=== PATIENT | female | born 1950 | race Caucasian/White ===

== ENCOUNTER 2016-05-06 13:57 | Inpatient (IN) | payer MEDICARE ==
--- NOTE | ~2016-05-06 | PN ---
Unit #: [id number] #: [id number] Patient: DOTTY REDDY [id number] [facility] [address] [place] [address] [id number] I MR#: [id number] NAME: DOTTY REDDY ROOM: P251 Age: 66 Sex: F Admission Date: 05/06/2016 : 1950 Attending Physician: Jj Krishnan M.D. Admitting Physician: Sigifredo Rodney NOTES DATE OF SERVICE 05/12/2016 DISCUSSION Mr. Reddy is a 66-year-old white female with mood disorder who was seen today. Chart was reviewed and case was discussed with the staff. She remains anxious, withdrawn, restless, irritable, impulsive, and rather bizarre and disorganized though has not shown any agitation or aggression and definitely appears to be showing some improvement, that she was out of her room today, sitting in the day room, and was (1) __ this was the first interaction in a positive way that I have had with her. She has been making the medications and tolerating them fairly well with no reported side effects. She denies any current suicidal or homicidal ideation, and as such we will continue to monitor her response to treatment interventions. We will make further adjustments as needed. Dictated by... Sigifredo Rodney/ering TD: 05/13/2016 06:50 JOB #: [id number] [facility] PROGRESS NOTES Page 1 of 1 X Jj Krishnan MD PROGRESS NOTE
--- NOTE | ~2016-05-06 | PN ---
Unit #: [id number] #: [id number] Patient: DOTTY REDDY [id number] [facility] [address] [place] [address] [id number] I MR#: [id number] NAME: DTOTY REDDY ROOM: P251 Age: 66 Sex: F Admission Date: 05/06/2016 : 1950 Attending Physician: Jj Krishnan M.D. Admitting Physician: Sigifredo Rodney PROGRESS NOTES DATE 05/16/2016 DISCUSSION Ms. Reddy is a 66-year-old white female who was seen today and chart was reviewed and case was discussed with the staff. nausea, any agitation. Meanwhile, she has been cooperative with treatment recommendations. She has been anxious withdrawn and rather seclusive to herself. MENTAL STATUS EXAMINATION An elderly white female who was casually dressed with fair personal hygiene and appears to be in no acute distress or discomfort. She was awake and alert with impaired attention and concentration. Her mood was anxious with a congruent affect. The patient denies any suicidal or homicidal ideation. Her insight and judgment remain slightly impaired. TREATMENT PLAN We will continue on current treatment protocol and monitor her response to medications and make further adjustments as needed. Dictated by... Jj Krishnan M.D. IAA/kayleigh TD: 05/17/2016 10:21 JOB #: [id number] Unit #: [id number] #: [id number] Patient: DOTTY REDDY PROGRESS NOTES Page 1 of 1 X Jj Krishnan MD PROGRESS NOTE
--- NOTE | ~2016-05-06 | PN ---
Unit #: [id number] #: [id number] Patient: DOTTY REDDY [id number] [facility] [address] [place] [address] [id number] I MR#: [id number] NAME: DOTTY REDDY ROOM: P251 Age: 66 Sex: F Admission Date: 05/06/2016 : 1950 Attending Physician: Jj Krishnan M.D. Admitting Physician: Sigifredo Rodney PROGRESS NOTES DATE 05/28/2016 DISCUSSION Ms. Reddy is a 66-year-old white female who was seen today and chart was reviewed and case was discussed with the staff. She has been anxious, withdrawn and rather seclusive to herself. Meanwhile, she has been cooperative with treatment recommendations and has been taking medications and tolerating them fairly well with no reported side effects. MENTAL STATUS EXAMINATION An elderly white female who was casually dressed with fair personal hygiene and appears to be in no acute distress or discomfort. She was awake and alert with impaired attention and concentration. Her mood was anxious with congruent affect. She denies any suicidal or homicidal ideations. Her insight and judgement remains slightly impaired. TREATMENT PLAN Will continue on current treatment protocol as patient is scheduled to get her , will consider doing discharge planning tomorrow. Dictated by... Sigifredo Rodney/james TD: 05/28/2016 16:51 JOB #: [id number] [facility] PROGRESS NOTES Page 1 of 1 X Jj Krishnan MD PROGRESS NOTE
--- NOTE | ~2016-05-06 | PN ---
Unit #: [id number] #: [id number] Patient: DOTTY REDDY [id number] [facility] [address] [place] [address] [id number] I MR#: [id number] NAME: DOTTY REDDY ROOM: P251 Age: 66 Sex: F Admission Date: 05/06/2016 : 1950 Attending Physician: Jj Krishnan M.D. Admitting Physician: Sigifredo Rodney PROGRESS NOTES DATE 05/29/2016 DISCUSSION The patient is a 66-year-old white female who was seen today. Chart was reviewed and the patient was discussed with the staff. The patient has been anxious and withdrawn. She has been rather seclusive to herself. She has been cooperative with treatment recommendations. She has been taking her medication and tolerating them fairly well. MENTAL STATUS EXAMINATION Elderly white female who was casually dressed and fair personal hygiene. She appears to be in no acute distress. Awake and alert. Attention span and concentration fair. Mood is anxious with congruent affect. Speech is slow and restricted in contented. Thought process is disorganized with loose association. Her insight and judgement remains slightly impaired. TREATMENT PLAN 1. Will continue her current medications and treatment protocol. Will monitor her response to medication and make further adjustments as needed. 2. We will continue to follow her. 3. 1. Dictated by... Sigifredo Rodney/gz TD: 05/29/2016 09:08 JOB #: [id number] Unit #: [id number] #: [id number] Patient: DOTTY REDDY PROGRESS NOTES Page 1 of 1 X Jj Krishnan MD PROGRESS NOTE
--- NOTE | ~2016-05-06 | PN ---
Unit #: [id number] #: [id number] Patient: DOTTY REDDY [id number] [facility] [address] [place] [address] [id number] I MR#: [id number] NAME: DOTTY REDDY ROOM: P251 Age: 66 Sex: F Admission Date: 05/06/2016 : 1950 Attending Physician: Jj Krishnan M.D. Admitting Physician: Sigifredo Rodney PROGRESS NOTES DATE 05/20/2016 DISCUSSION Ms. Reddy is a 66-year-old white female who was seen today and chart was reviewed and case was discussed with the staff. She has been anxious, withdrawn, rather seclusive to herself. Meanwhile, she has been cooperative with treatment recommendations and has been taking medications and tolerating them fairly well with no reported side effects. MENTAL STATUS EXAMINATION An elderly white female who was casually dressed with fair personal hygiene and appears to be in no acute distress or discomfort. She was awake and alert on interaction with intact orientation. Her mood was anxious with congruent affect. Her speech is slow and goal-directed. She denies any suicidal or homicidal ideations and also denies any auditory or visual hallucinations. Her insight and judgement remains slightly impaired. TREATMENT PLAN 1. Will continue on current medications and treatment protocol. Will monitor her response to the medications and make further adjustments as needed. 2. Will continue to follow up. Dictated by... Sigifredo Rodney/james TD: 05/21/2016 17:50 JOB #: [id number] Unit #: [id number] #: [id number] Patient: DOTTY REDDY PROGRESS NOTES Page 1 of 1 X Jj Krishnan MD X PROGRESS NOTE
--- NOTE | ~2016-05-06 | DS ---
Unit #: [id number] #: [id number] Patient: DOTTY REDDY [id number] [facility] [address] [place] [address] [id number] MR#: [id number] NAME: DOTTY REDDY ROOM: Formerly Named [facility] Age: 66 Sex: F Admission Date: 05/06/2016 : 1950 Discharge Date: 06/01/2016 Attending Physician: Jj Krishnan M.D. DISCHARGE SUMMARY IDENTIFYING DATA Ms. Caro is a 66-year-old white female, who was self-referred to the outpatient treatment program. DISCHARGE DIAGNOSES Psychiatric: Major depressive disorder, recurrent, moderate, without psychotic features. Medical: Please H and P. Stressors: Moderate psychosocial stressors. HISTORY OF PRESENT ILLNESS Please see initial psychiatric evaluation for details. PAST PSYCHIATRIC HISTORY Please see initial psychiatric evaluation for details. PAST MEDICAL HISTORY Please see initial psychiatric evaluation for details. HOSPITAL COURSE The patient was admitted to the adult psychiatric unit at [facility] and was oriented to the hospital environment. Routine p.r.n. medications were initiated, and she was started back on home medications, and Risperdal 1 mg b.i.d. and Celexa 20 mg daily were initiated, and she was closely monitored. She was taking medications regularly and as such, was hypersensitivity to the molecule of will be discharged home and will continue treatment on an outpatient basis. DISCHARGE CONDITION Stable. PROGNOSIS Fair. Dictated by... Sigifredo Rodney/guanako TD: 07/08/2016 02:06 JOB #: [id number] Unit #: [id number] #: [id number] Patient: DOTTY REDDY DISCHARGE SUMMARY Page 1 of 1 X Jj Krishnan MD X DISCHARGE SUMMARY
--- NOTE | ~2016-05-06 | PN ---
Unit #: [id number] #: [id number] Patient: DOTTY REDDY [id number] [facility] [address] [place] [address] [id number] I MR#: [id number] NAME: DOTTY REDDY ROOM: P251 Age: 66 Sex: F Admission Date: 05/06/2016 : 1950 Attending Physician: Jj Krishnan M.D. Admitting Physician: Sigifredo Rodney PROGRESS NOTES DATE 06/01/2016 DISCUSSION Ms. Reddy is a 66-year-old white female who was seen today and chart was reviewed and case was discussed with the staff. She was laying in her bed and has been doing fairly well and social worker health services will be working with discharge planning today and hopefully getting her back to residential facility. Dictated by... Sigifredo Rodney/emeka TD: 06/02/2016 22:26 JOB #: [id number] [facility] PROGRESS NOTES Page 1 of 1 X Jj Krishnan MD PROGRESS NOTE
--- NOTE | ~2016-05-06 | PN ---
Unit #: [id number] #: [id number] Patient: DOTTY REDDY [id number] [facility] [address] [place] [address] [id number] I MR#: [id number] NAME: DOTTY REDDY ROOM: P251 Age: 66 Sex: F Admission Date: 05/06/2016 : 1950 Attending Physician: Jj Krishnan M.D. Admitting Physician: Sigifredo Rodney NOTES DATE OF SERVICE 05/19/2016 DISCUSSION Ms. Reddy is a 66-year-old white female who was seen today. Chart was reviewed and case was discussed with the staff. She has been anxious and withdrawn though has not shown any agitation or irritability (1) ___. MENTAL STATUS EXAMINATION An elderly white female who is casually dressed with fair personal hygiene, appears to be in no acute distress or discomfort. The patient was awake and alert with impaired attention and concentration. Her mood is anxious and depressed with congruent affect. She denies any suicidal or homicidal ideations. Her insight and judgment remain slightly impaired. TREATMENT PLAN 1. We will continue her on her current medications and treatment protocol. We will monitor her response to the medications and make further adjustments as needed. 2. We will continue to follow up. Dictated by... Sigifredo Rodney/ering TD: 05/20/2016 10:06 JOB #: [id number] [facility] PROGRESS NOTES Page 1 of 1 X Jj Krishnan MD X PROGRESS NOTE
--- NOTE | ~2016-05-06 | PN ---
Unit #: [id number] #: [id number] Patient: DOTTY REDDY [id number] [facility] [address] [place] [address] [id number] I MR#: [id number] NAME: DOTTY REDDY ROOM: P251 Age: 66 Sex: F Admission Date: 05/06/2016 : 1950 Attending Physician: Jj Krishnan M.D. Admitting Physician: Sigifredo Rodney PROGRESS NOTES DATE 05/09/2016 DISCUSSION Ms. Reddy is a 66-year-old white female with mood disorder and psychosis was seen today and chart was reviewed and case was discussed with the staff. She remains acutely psychotic with very bizarre behavior and has been rather seclusive to herself and has not been coming out socializing and going to therapy groups and has been difficult or able to carry on any meaningful conversation. MENTAL STATUS EXAMINATION An elderly white female who was casually dressed with fair personal hygiene, appears to be in no acute distress or discomfort. She was awake and alert with impaired attention and concentration. Her mood was anxious with congruent affect. Her speech was slow and tangential. Her thought processes were disorganized with some looseness of associations and paranoid ideation. Her insight and judgement remains significantly impaired. TREATMENT PLAN 1. We will continue her on her current treatment protocol. We will monitor her response and make further adjustments as needed. 2. We will continue to follow up. Dictated by... Sigifredo Rodney/emeka TD: 05/11/2016 01:48 JOB #: [id number] Unit #: [id number] #: [id number] Patient: DOTTY REDDY PROGRESS NOTES X Jj Krishnan MD PROGRESS NOTE
--- NOTE | ~2016-05-06 | CO ---
Unit #: [id number] #: [id number] Patient: DOTTY REDDY [id number] [facility] [address] [place] [address] [id number] I MR#: [id number] NAME: DOTTY REDDY ROOM: P251 Age: 66 Sex: F Admission Date: 05/06/2016 : 1950 Attending Physician: Jj Krishnan M.D. CONSULTATION REPORT REASON FOR CONSULT Increased urination. SUBJECTIVE "The only reason I urinate on the floor is because I cannot make it to the bathroom down the [address] and bathroom here is always locked. I don't have any pain except maybe a little bit when I urinate." OBJECTIVE Vital signs within normal limits. No pain to palpation over abdomen. No flank pain. ASSESSMENT Possible urinary tract infection. PLAN Obtain UA today with culture and results to provider conservation officer. Dictated by... Maya Dumont/james TD: 05/23/2016 18:04 JOB #: [id number] CONSULTATION REPORT Page 1 of 1 X Lily Lee APR X CONSULTATION REPORT
--- NOTE | ~2016-05-06 | PN ---
Unit #: [id number] #: [id number] Patient: DOTTY REDDY [id number] [facility] [address] [place] [address] [id number] I MR#: [id number] NAME: DOTTY REDDY ROOM: P251 Age: 66 Sex: F Admission Date: 05/06/2016 : 1950 Attending Physician: Jj Krishnan M.D. Admitting Physician: Sigifredo Rodney PROGRESS NOTES DATE OF SERVICE: 05/17/2016 SUBJECTIVE Ms. Reddy is a 66-year-old white female with mood disorder and psychosis, who was seen today and chart was reviewed, and case was discussed with the staff. She has been anxious, withdrawn, disorganized, and rather seclusive to herself. Meanwhile, she has not shown any agitation or aggression and has been taking the medications and tolerating them fairly well with no reported side effects. MENTAL STATUS EXAMINATION An elderly white female who was casually dressed with fair personal hygiene, appears to be in no acute distress or discomfort. She was awake and alert with impaired attention and concentration. Her mood was anxious with a congruent affect. Her speech was slow and restricted in content. Her thought processes were disorganized with some looseness of associations and flight of ideas. Her insight and judgment remain significantly impaired. TREATMENT PLAN We will continue on her current medications and treatment. We will monitor her response and make further adjustments as needed. Dictated by... Sigifredo Rodney/guanako TD: 05/18/2016 22:00 JOB #: [id number] [facility] PROGRESS NOTES Page 1 of 1 X Jj Krishnan MD NOTE
--- NOTE | ~2016-05-06 | PN ---
Unit #: [id number] #: [id number] Patient: DOTTY REDDY [id number] [facility] [address] [place] [address] [id number] I MR#: [id number] NAME: DOTTY REDDY ROOM: P251 Age: 66 Sex: F Admission Date: 05/06/2016 : 1950 Attending Physician: Jj Krishnan M.D. Admitting Physician: Sigifredo Rodney PROGRESS NOTES DATE OF SERVICE: 05/11/2016 SUBJECTIVE Ms. Reddy is a 66-year-old white female who was seen today and chart was reviewed, and case was discussed with the staff. She remains anxious, agitated, irritable, impulsive, disorganized with bizarre behavior, and persistent paranoia. Meanwhile, she has been taking medications and tolerating them fairly well with no reported side effects. MENTAL STATUS EXAMINATION An elderly white female who was casually dressed with fair personal hygiene, appears to be in no acute distress or discomfort. She was awake and alert with impaired attention and concentration. Her mood was anxious with a congruent affect. Her speech was slow and restricted in content. Her thought processes were disorganized with some looseness of associations. Her insight and judgment remain significantly impaired. TREATMENT PLAN 1. We will continue on her current medications and treatment protocol. We will monitor her response to medications and make further adjustments as needed. 2. We will continue to follow up. Dictated by... Sigifredo Rodney/austinl TD: 05/12/2016 01:28 JOB #: [id number] [facility] PROGRESS NOTES Page 1 of 1 X Jj Krishnan MD PROGRESS NOTE
--- NOTE | ~2016-05-06 | PN ---
Unit #: [id number] #: [id number] Patient: DOTTY MERCER [id number] [facility] [address] [place] [address] [id number] I MR#: [id number] NAME: DOTTY MERCER ROOM: P251 Age: 66 Sex: F Admission Date: 05/06/2016 : 1950 Attending Physician: Jj Krishnan M.D. Admitting Physician: Sigifredo Rodney NOTES DATE OF SERVICE: 05/08/2016 SUBJECTIVE Ms. Mercer is a 66-year-old white female, who was seen today and chart was reviewed, and case was discussed with the staff. She has been anxious, restless, withdrawn, and has been agitated, irritable, impulsive, and very negative attitude and behavior. MENTAL STATUS EXAMINATION An elderly white female, who was casually dressed with fair personal hygiene, appears to be in no acute distress or discomfort. She was awake and alert with impaired attention and concentration. Her mood was anxious with a congruent affect. Her speech was slow and tangential. Thought processes were disorganized with some looseness of associations and flight of ideas. Her insight and judgment remain significantly impaired. TREATMENT PLAN 1. We will continue her on her current medications and treatment protocol. We will monitor her response to the medications and make further adjustments as needed. 2. We will continue to follow up. Dictated by... Sigifredo Rodney/guanako TD: 05/09/2016 00:57 JOB #: [id number] [facility] ORTIZ NOTES X Jj Krishnan MD PROGRESS NOTE
--- NOTE | ~2016-05-06 | PN ---
Unit #: [id number] #: [id number] Patient: DOTTY MERCER [id number] [facility] [address] [place] [address] [id number] I MR#: [id number] NAME: DOTTY MERCER ROOM: P251 Age: 66 Sex: F Admission Date: 05/06/2016 : 1950 Attending Physician: Jj Krishnan M.D. Admitting Physician: Sigifredo Rodney NOTES DATE OF SERVICE: 05/10/2016 SUBJECTIVE Ms. Mercer is a 66-year-old white female who was seen today and chart was reviewed and case was discussed with the staff. She has been anxious, withdrawn, and rather seclusive to herself. Meanwhile, she has been cooperative with treatment recommendations and has been taking the medications and tolerating them fairly well. MENTAL STATUS EXAMINATION An elderly white female who was casually dressed with fair personal hygiene, appears to be in slight distress and discomfort. She was awake and alert with impaired attention and concentration. Her mood was anxious with a congruent affect. She denies any suicidal or homicidal ideations. Her insight and judgment remain significantly impaired. TREATMENT PLAN 1. We will continue her on her current medications and treatment protocol. We will monitor her response and make further adjustments as needed. 2. We will continue to follow up. Dictated by... Sigifredo Rodney/guanako TD: 05/11/2016 19:15 JOB #: [id number] [facility] ORTIZ NOTES Page 1 of 1 X Jj Krishnan MD PROGRESS NOTE
--- NOTE | ~2016-05-06 | HP ---
Unit #: [id number] #: [id number] Patient: SANDRA REDDY [id number] [place] [address] [id number] I MR#: [id number] NAME: SANDRA REDDY ROOM: P251 Age: 66 Sex: F Admission Date: 05/06/2016 : 1950 Attending Physician: Jj Krishnan M.D. Admitting Physician: Jj Krishnan M.D. HISTORY AND PHYSICAL HISTORY OF PRESENT ILLNESS Sandra is a 66 year old, admitted to [address] [place] [address] with psychotic behavior. On admission, she was observed responding to internal stimuli. PAST MEDICAL HISTORY 1. High blood pressure. 2. Seasonal allergies. PAST SURGICAL HISTORY Nothing reported. ALLERGIES No known drug allergies. SOCIAL HISTORY She smokes four packs a day. She drinks alcohol and uses marijuana. FAMILY HISTORY Medically noncontributory. REVIEW OF SYSTEMS She does not answer all questions appropriately. She has no complaints of chest pain or shortness of breath. There has been no nausea, vomiting, or diarrhea. CURRENT MEDICATIONS 1. Celexa 20 mg daily 2. Risperdal 1 mg b.i.d. 3. Valium 10 mg q.h.s. p.r.n. 4. Milk of magnesia p.r.n. 5. Maalox p.r.n. 6. Tylenol p.r.n. PHYSICAL EXAMINATION GENERAL: Alert, well-nourished, no apparent distress. VITAL SIGNS: Blood pressure 124/66, heart rate 72, respirations 16, and temperature 98.6. WEIGHT: 167 pounds. HEIGHT: 5 feet 6 inches. SKIN: Warm and dry without rash or lesion. HEENT: Normocephalic. TMs not viewed. Oral and nasal passages clear. Conjunctivae clear. PERRLA. EOMs intact. Unit #: [id number] #: [id number] Patient: SANDRA REDDY NECK: Supple without lymphadenopathy or thyromegaly. HEART: Regular rate and rhythm without murmur. LUNGS: Clear. ABDOMEN: Soft, nontender. : Not done. EXTREMITIES: No evidence of cyanosis, clubbing or edema. Moves all without focal deficit. NEUROLOGICAL: Unable to complete extended examination. She does move all extremities without focal deficit. Hand candy maker is equal and gait is normal. IMPRESSION Psychiatric admission. RECOMMENDATIONS Psychiatric, per psychiatrist. MEDICAL I see no contraindications to participating in facility's activities. MEDICAL PROGNOSIS Good. MEDICAL CONDITION Stable. Dictated by... Claudia Toro P.A.-C. for Sigifredo Henry/karen TD: 05/07/2016 12:42 JOB #: [id number] HISTORY AND PHYSICAL X Claudia Toro X HISTORY AND PHYSICAL
--- NOTE | ~2016-05-06 | PN ---
Unit #: [id number] #: [id number] Patient: DOTTY REDDY [id number] [facility] [address] [place] [address] [id number] I MR#: [id number] NAME: DOTTY REDDY ROOM: P251 Age: 66 Sex: F Admission Date: 05/06/2016 : 1950 Attending Physician: Jj Krishnan M.D. Admitting Physician: Sigifredo Rodney PROGRESS NOTES DATE 05/15/2016 DISCUSSION Ms. Reddy is a 66-year-old white female who was seen today and chart was reviewed and case was discussed with the staff. She has been anxious, withdrawn and rather seclusive to herself. Meanwhile, she has been cooperative with treatment recommendations and has been taking medications and tolerating them fairly well with no reported side effects. MENTAL STATUS EXAMINATION An elderly white female who was casually dressed with fair personal hygiene and appears to be in no acute distress or discomfort. She was awake and alert on interaction with impaired attention and concentration. Her mood was anxious with congruent affect. Her speech is slow and tangential. Her thought processes were disorganized with some looseness of associations and flight of ideas. Her insight and judgement remains significantly impaired. TREATMENT PLAN 1. Will continue on current medications and treatment protocol. Will monitor her response to the medications and make further adjustments as needed. 2. Will continue to follow up. Dictated by... Jj Krishnan M.D. IAA/james TD: 05/15/2016 15:54 JOB #: [id number] Unit #: [id number] #: [id number] Patient: DOTTY REDDY PROGRESS NOTES Page 1 of 1 X Jj Krishnan MD PROGRESS NOTE
--- NOTE | ~2016-05-06 | PN ---
Unit #: [id number] #: [id number] Patient: DOTTY REDDY [id number] [facility] [address] [place] [address] [id number] I MR#: [id number] NAME: DOTTY REDDY ROOM: P251 Age: 66 Sex: F Admission Date: 05/06/2016 : 1950 Attending Physician: Jj Krishnan M.D. Admitting Physician: Sigifredo Rodney NOTES DATE 05/31/2016 DISCUSSION Ms. Reddy is a 66-year-old white female who was seen today and chart was reviewed and case was discussed with the staff. She has been anxious, withdrawn and rather seclusive to herself. Meanwhile, she has been cooperative with treatment recommendations as she has been taking the medications and tolerating them fairly well with no reported side effects. MENTAL STATUS EXAMINATION An elderly white female who was casually dressed with fair personal hygiene, appears to be in no acute distress or discomfort. She was awake and alert on interaction with intact orientation. Her mood was anxious with congruent affect. She denies any suicidal or homicidal ideations. Her insight and judgement remains slightly impaired. TREATMENT PLAN We will continue her on her current treatment protocol. We will monitor her response to the medication and make further adjustments as needed. Dictated by... Sigifredo Rodney/emeka TD: 06/01/2016 22:10 JOB #: [id number] [facility] PROGRESS NOTES Page 1 of 1 X Jj Krishnan MD PROGRESS NOTE
--- NOTE | ~2016-05-06 | PN ---
Unit #: [id number] #: [id number] Patient: DOTTY REDDY [id number] [facility] [address] [place] [address] [id number] I MR#: [id number] NAME: DOTTY REDDY ROOM: P251 Age: 66 Sex: F Admission Date: 05/06/2016 : 1950 Attending Physician: Jj Krishnan M.D. Admitting Physician: Sigifredo Rodney PROGRESS NOTES DATE May 26, 2016 DISCUSSION Ms. Reddy is a 66-year-old white female, who was seen today and chart was reviewed and the case was discussed with the staff. She has been anxious, withdrawn, but has not shown any agitation and has been cooperative with the treatment recommendations and has been taking the medications and tolerating them fairly well with no reported side effects. MENTAL STATUS EXAMINATION An elderly white female, who was casually dressed with fair personal hygiene and appears to be in no acute distress or discomfort. She was awake and alert on interaction with intact orientation. Her mood was anxious with a congruent affect. The patient denies any suicidal or homicidal ideations. Her insight and judgment remain slightly impaired. TREATMENT PLAN 1. We will continue her on her current medications and treatment protocol, and will monitor her response to the medications, and make further adjustments as needed. 2. We will continue to followup. Dictated by... Sigifredo Rodney/karen TD: 05/27/2016 10:26 JOB #: [id number] Unit #: [id number] #: [id number] Patient: DOTTY REDDY PROGRESS NOTES Page 1 of 1 X Jj Krishnan MD PROGRESS NOTE
--- NOTE | ~2016-05-06 | PN ---
Unit #: [id number] #: [id number] Patient: DOTTY REDDY [id number] [facility] [address] [place] [address] [id number] I MR#: [id number] NAME: DOTTY REDDY ROOM: P251 Age: 66 Sex: F Admission Date: 05/06/2016 : 1950 Attending Physician: Jj Krishnan M.D. Admitting Physician: Sigifredo Rodney PROGRESS NOTES DATE OF SERVICE: 05/24/2016 SUBJECTIVE Ms. Reddy is a 66-year-old white female who was seen today and chart was reviewed, and case was discussed with the staff. She has been anxious, withdrawn, and rather seclusive to herself. Meanwhile, she has been cooperative with treatment recommendation and has been taking the medications and tolerating them fairly well. MENTAL STATUS EXAMINATION An elderly white female who was casually dressed with fair personal hygiene, and appears to be in no acute distress or discomfort. She was awake and alert with impaired attention and concentration. Her mood was anxious with a congruent affect. Her speech was slow and restricted in content. Her thought processes were disorganized with some looseness of associations and paranoid ideations. Her insight and judgment remain significantly impaired. TREATMENT PLAN 1. We will continue on her current medications and treatment protocol. We will monitor her response and make further adjustments as needed. 2. We will continue to follow up. Dictated by... Sigifredo Rodney/guanako TD: 05/25/2016 12:16 JOB #: [id number] [facility] PROGRESS NOTES Page 1 of 1 X Jj Krishnan MD NOTE
--- NOTE | ~2016-05-06 | PN ---
Unit #: [id number] #: [id number] Patient: DOTTY REDDY [id number] [facility] [address] [place] [address] [id number] MR#: [id number] NAME: DOTTY REDDY ROOM: P251 Age: 66 Sex: F Admission Date: 05/06/2016 : 1950 Attending Physician: Jj Krishnan M.D. Admitting Physician: Sigifredo Rodney PROGRESS NOTES DATE 05/27/2016 DISCUSSION Ms. Reddy is a 66-year-old white female with mood disorder and psychosis who was seen today and chart was reviewed and case was discussed with the staff. She remains anxious, withdrawn though has not shown any agitation, irritability or behavioral problems and has been cooperative with treatment recommendations and has been taking medications and tolerating them fairly well with no reported side effects. MENTAL STATUS EXAMINATION An elderly white female who was casually dressed with fair personal hygiene and appears to be in no acute distress or discomfort. She was awake and alert with impaired attention and concentration. Her mood was anxious with congruent affect. Her speech is slow and restricted in content. She denies any suicidal or homicidal ideation and also denies any auditory or visual hallucinations. Her insight and judgement remains slightly impaired. TREATMENT PLAN 1. Will continue on current medications and treatment protocol. Will monitor her response to the medications and make further adjustments as needed. 2. Will continue to follow up. Dictated by... Sigifredo Rodney/james TD: 05/27/2016 22:43 JOB #: [id number] Unit #: [id number] #: [id number] Patient: DOTTY REDDY PROGRESS NOTES Page 1 of 1 X Jj Krishnan MD NOTE
--- NOTE | ~2016-05-06 | PN ---
Unit #: [id number] #: [id number] Patient: DOTTY MERCER [id number] [facility] [address] [place] [address] [id number] I MR#: [id number] NAME: DOTTY MERCER ROOM: P251 Age: 66 Sex: F Admission Date: 05/06/2016 : 1950 Attending Physician: Jj Krishnan M.D. Admitting Physician: Sigifredo Rodney NOTES DATE OF SERVICE: 05/14/2016 SUBJECTIVE Ms. Mercer is a 66-year-old white female, who was seen today and chart was reviewed and the case was discussed with the staff. She has been anxious, withdrawn, and rather seclusive to herself with bizarre behavior and disorganized thoughts and speech. Meanwhile, she has been taking the medications and tolerating them fairly well with no reported side effects. MENTAL STATUS EXAMINATION An elderly white female, who was casually dressed with a fair personal hygiene, appears to be in no acute distress or discomfort. She was awake and alert on interaction with intact orientation. Her mood was anxious with a congruent affect. Her speech was slow and tangential. Her thought processes were disorganized with some looseness of associations and flight of ideas. Her insight and judgment remain significantly impaired. TREATMENT PLAN 1. We will continue her on her current medications and treatment protocol. We will monitor her response to the medications and make further adjustments as needed. 2. We will continue to follow up. Dictated by... Sigifredo Rodney/guanako TD: 05/14/2016 19:46 JOB #: [id number] [facility] ORTIZ NOTES Page 1 of 1 X Jj Krishnan MD PROGRESS NOTE
--- NOTE | ~2016-05-06 | PN ---
Unit #: [id number] #: [id number] Patient: DOTTY REDDY [id number] [facility] [address] [place] [address] [id number] I MR#: [id number] NAME: DOTTY REDDY ROOM: P251 Age: 66 Sex: F Admission Date: 05/06/2016 : 1950 Attending Physician: Jj Krishnan M.D. Admitting Physician: Sigifredo Rodney PROGRESS NOTES DATE OF SERVICE 05/07/2016 DISCUSSION Ms. Reddy is a 66-year-old white female who was seen today. Chart was reviewed and case was discussed with the staff who reports the patient has had a rough evening with increasing agitation, yelling, and screaming and was refusing to follow directions. P.r.n. medications were given to cut down on her agitation and aggression. MENTAL STATUS EXAMINATION An elderly white female who is casually dressed with fair personal hygiene, appears to be in no acute distress or discomfort. She was awake and alert on interaction with intact orientation. Her mood is anxious with a congruent affect. She denies any suicidal or homicidal ideations. Her insight and judgment remain slightly impaired. TREATMENT PLAN 1. We will continue her on her current medications and treatment protocol. We will monitor her response to the medications and make further adjustments as needed. 2. We will continue to follow up. Dictated by... Sigifredo Rodney/ering TD: 05/08/2016 10:49 JOB #: [id number] [facility] PROGRESS NOTES X Jj Krishnan MD PROGRESS NOTE
--- NOTE | ~2016-05-06 | PN ---
Unit #: [id number] #: [id number] Patient: DOTTY REDDY [id number] [facility] [address] [place] [address] [id number] I MR#: [id number] NAME: DOTTY REDDY ROOM: P251 Age: 66 Sex: F Admission Date: 05/06/2016 : 1950 Attending Physician: Jj Krishnan M.D. Admitting Physician: Sigifredo Rodney PROGRESS NOTES DATE 05/18/2016 DISCUSSION Ms. Reddy is a 66-year-old white female who was seen today and chart was reviewed and case was discussed with the staff. She has been anxious, withdrawn and seclusive to herself and has been quite disorganized and has been having difficulty carrying on meaningful conversation as she has been more focused on her having some clothes and shoes being provided to her. Meanwhile, she has been very seclusive to herself and has not been able to come outside interact or social very much although she has been taking medications and tolerating them fairly well. MENTAL STATUS EXAMINATION An elderly white female who was casually dressed with fair personal hygiene, appears to be in no acute distress or discomfort. She was awake and alert but she denies any suicidal or homicidal ideation. Her insight and judgement remains slightly impaired. TREATMENT PLAN We will continue her on her current medications. We will monitor her response. Dictated by... Sigifredo Rodney/emeka TD: 05/20/2016 04:53 JOB #: [id number] Unit #: [id number] #: [id number] Patient: DOTTY REDDY PROGRESS NOTES Page 1 of 1 X Jj Krishnan MD PROGRESS NOTE
--- NOTE | ~2016-05-06 | PN ---
Unit #: [id number] #: [id number] Patient: DOTTY REDDY [id number] [facility] [address] [place] [address] [id number] I MR#: [id number] NAME: DOTTY REDDY ROOM: P251 Age: 66 Sex: F Admission Date: 05/06/2016 : 1950 Attending Physician: Jj Krishnan M.D. Admitting Physician: Sigifredo Rodney PROGRESS NOTES DATE 05/25/2016 DISCUSSION Ms. Reddy is a 66-year-old white female who was seen today and chart was reviewed and case was discussed with the staff. She has been doing fairly well and has been showing improvement in her psychosis and mood as she has been compliant with treatment recommendations. She has been taking medications and tolerating them fairly well. MENTAL STATUS EXAMINATION An elderly white female who was acute distress or discomfort. She was awake and alert on interaction with intact orientation. Her mood was anxious with congruent affect. She denies any suicidal or homicidal ideations. Her insight and judgement remains slightly impaired. TREATMENT PLAN 1. We will continue her on her current medications and treatment protocol. We will monitor her response to the medication and make further adjustments as needed. 2. We will continue to follow up. Dictated by... Sigifredo Rodney/emeka TD: 05/27/2016 00:33 JOB #: [id number] Unit #: [id number] #: [id number] Patient: DOTTY REDDY PROGRESS NOTES Page 1 of 1 X Jj Krishnan MD PROGRESS NOTE
--- NOTE | ~2016-05-06 | A ---
[facility] Nutrition Therapy DATE: 05/20/16 Patient: DOTTY REDDY Physician: AFAIRF Address: [facility] Room/Bed: [address], Zip: [place] [address] Admit Date: 05/06/16 Date of : [birth year] Height: 5 6 Weight: [phone] NUTRITIONAL ASSESSMENT: REASON: LENGTH OF STAY PATIENT ADMITTED FOR PSYCHOTIC BEHAVIORS PMH: HTN Anthropometrics: HT: 5'6", WT: 167#, BMI: 27, %IBW: 128 Labs: NO LABS AVAILABLE Meds: CELEXA, RISPERDAL, VALIUM Assessment: CHART REVIEWED. EVENTS NOTED. PATIENT IS A 66 Y/O FEMALE ADMITTED FOR PSYCHOTIC BEHAVIORS. PATIENT IS CURRENTLY UNEMPLOYED, HOMELESS, SMOKES DAILY, AND DENIES CURRENT SUBSTANCE ABUSE; HOWEVER PATIENT HAS A HX OF ETOH AND MARIJUANA USE. PATIENT HAS BEEN NON-COMPLIANT WITH MEDICATIONS PRIOR TO ADMIT, AND SHE HAS A HX OF INPATIENT PSYCHIATRIC HOSPITALIZATION. PER NEEDS ASSESSMENT, PATIENT STATED A POOR APPETITE WITH A 49# WEIGHT LOSS OVER LAST 3 MONTHS. PATIENT WAS NOTED TO BE RESPONDING TO INTERAL STIMULI DURING ADMISSION. NURSING REPORTS CONSISTENTLY GOOD PO INTAKES AND PATIENT FREQUENTLY ASKS FOR EXTRA SNACKS THROUGHOUT THE DAY. PATIENT DOES CONTINUE TO BE VERY ISOLATIVE AT TIMES, RUDE, HAS DISORGANIZED BEHAVIOR, AND HAS DIFFICULTY CARRYING ON MEANINGFUL CONVERSATION. THERE ARE CURRENTLY NO SKIN OR GI ISSUES NOTED ATT. PATIENT IS ON A REGULAR DIET. Dx: NO NUTRITION DX Intervention: 1. REGULAR DIET, 2. MEDS PER MD, 3. PSYCH Monitoring, Evaluation and Goals: 1. ADEQUATE PO INTAKES >50% OF MEALS 2. PREVENT, CORRECT MICRO/MACRO NUTRIENT DEFICIENCIES MONITOR: WEIGHTS, LABS, PO/FLUID INTAKES Recommendations: 1. CONTINUE REGULAR DIET TOLERATED. OFFER SNACKS BETWEEN MEALS D/T PATIENT C/O HUNGER. 2. ENCOURAGE ADEQUATE PO AND FLUID INTAKES PATIENT NOT AT NUTRITIONAL RISK ATT [facility] Therapy DATE: 05/20/16 Patient: DOTTY REDDY Physician: DAVIDF Address: [facility] Room/Bed: [address], Zip: [place] [address] Admit Date: 05/06/16 Date of : [birth year] Height: 5 6 Weight: [phone] Respectfully, ABDIRAHMAN SCHNEIDER RD, LD [facility] cc: client file
--- NOTE | ~2016-05-06 | PN ---
Unit #: [id number] #: [id number] Patient: DOTTY REDDY [id number] [facility] [address] [place] [address] [id number] MR#: [id number] NAME: DOTTY REDDY ROOM: P251 Age: 66 Sex: F Admission Date: 05/06/2016 : 1950 Attending Physician: Jj Krishnan M.D. Admitting Physician: Sigifredo Rodney PROGRESS NOTES DATE 05/30/2016 DISCUSSION Ms. Reddy is a 66-year-old white female who was seen today and chart was reviewed and case was discussed with the staff. She has been anxious, withdrawn and rather seclusive to herself. Meanwhile, she has been cooperative with treatment recommendations as she has been taking the medications and tolerating them fairly well. MENTAL STATUS EXAMINATION An elderly white female who was casually dressed with fair personal hygiene, appears to be in no acute distress or discomfort. She was awake and alert on interaction with intact orientation. Her mood was anxious with congruent affect. She denies any suicidal or homicidal ideations. Her insight and judgement remains slightly impaired. TREATMENT PLAN 1. We will continue her on her current medications and treatment protocol. We will monitor her response to the medication and make further adjustments as needed. 2. We will continue to follow up. Dictated by... Sigifredo Rodney/emeka TD: 06/01/2016 02:02 JOB #: [id number] Unit #: [id number] #: [id number] Patient: DOTTY REDDY PROGRESS NOTES Page 1 of 1 X Jj Krishnan MD PROGRESS NOTE
--- NOTE | ~2016-05-06 | PA ---
Unit #: [id number] #: [id number] Patient: DOTTY MERCER [id number] [facility] [address] [place] [address] [id number] I MR#: [id number] NAME: DOTTY MERCER ROOM: P251 Age: 66 Sex: F Admission Date: 05/06/2016 : 1950 Date of Assessment: 05/06/2016 Attending Physician: Jj Krishnan M.D. Admitting Physician: Jj Krishnan M.D. PSYCHIATRIC ASSESSMENT DATE OF SERVICE 05/06/2016. IDENTIFYING DATA Ms. Mercer is a 65-year-old single disabled white female, who is a resident of [place], [place], and was self-referred to the hospital as a referral from the [facility]. CHIEF COMPLAINT "I don't know why he referred me here. I guess I'm a member of [employer]." HISTORY OF PRESENT ILLNESS Ms. Mercer is a 65-year-old white female, who apparently went and saw Gerard Welch at the [facility], who referred her here; however, the patient during assessment was observed to be responding to internal stimuli, laughing inappropriately, having rambling speech, and has a history of chronic mental health issues and has been off her medication in the last year, particularly when she relocated from [place], [place], "I have been living in the streets 7 days a week, 24 hours a day. I have been having to go to a hospital to take a bath. I have been going to [facility] on occasions and I have been there three times. The social workers there took me to [facility] and I met Gerard Welch and they said I was going to the [facility]. I have been having suicidal thoughts to take an overdose of pills, I have done it before when I was in [place], [place]. I took an overdose of over 60 pills and I was admitted to the hospital for over [address] my mind is and being off my medication for a year, I have these thoughts. It could go either way because I could go off on people. I don't hear voices or anything. I'm just bipolar." The patient was seen to be rather responding to internal stimuli with bizarre behavior, disorganized thoughts and speech, paranoia, and delusional behavior and as such, a recommendation for inpatient level of care for safety and stabilization was made and the patient was transferred to us. SUBSTANCE ABUSE HISTORY The patient reports a history of experimentation with alcohol and cannabis in the past, but denies any current drug abuse. PAST PSYCHIATRIC HISTORY The patient has had two prior inpatient psychiatric hospitalizations at [facility] as well as hospitalization in [place], and review of the medical records indicate that currently she is not active in any treatment program and is not taking any psychotropic medications. Unit #: [id number] #: [id number] Patient: DOTTY MERCER PAST MEDICAL HISTORY Hypertension. ALLERGIES No known medication allergies. PERSONAL AND SOCIAL HISTORY A 65-year-old white female, who reports that she is unemployed, disabled, and has been homeless and has poor social support system. MENTAL STATUS EXAMINATION An elderly white female, who was casually dressed with a fair personal hygiene, appears to be in no acute distress or discomfort. She was awake and alert with impaired attention and concentration. Her mood was anxious with a congruent affect. Her speech was slow and restricted in content. Her thought processes were disorganized with some looseness of associations and flight of ideas and paranoid ideations and delusional behavior. Her insight and judgment remain significantly impaired. DIAGNOSTIC IMPRESSION Psychiatric: Schizoaffective disorder, bipolar type, most recent episode manic with psychosis. Medical: None. Stressors: Moderate psychosocial stressors. TREATMENT PLAN 1. The patient has presented with a history of mood disorder and psychosis, and we will recommend admitting her to the inpatient psychiatric unit, and we will monitor her response to treatment interventions and we will consider medication adjustment. We will also consider her to be a candidate for long-acting injectable antipsychotic, particularly because of her history of poor compliance with medications leading to rapid decompensation. 2. Supportive therapy was provided to the patient. ESTIMATED LENGTH OF STAY 5 to 7 days. ABILITY TO HELP SELF Limited. WILLINGNESS TO HELP SELF The patient appears to be willing to help self. STRENGTHS 1. Communicative. 2. Cooperative. PROBLEMS 1. Chronic dysphoric symptoms. 2. Poor social support system. DISCHARGE CRITERIA This will be contingent upon the patient's ability to show resolution of her yuval and psychosis and her ability to stay safe to herself, particularly after discharge from the hospital. Unit #: [id number] #: [id number] Patient: DOTTY MERCER Dictated by... Sigifredo Rodney/guanako TD: 05/07/2016 13:33 JOB #: [id number] PSYCHIATRIC ASSESSMENT X Jj Krishnan MD PSYCHIATRIC ASSESSMENT
--- NOTE | ~2016-05-06 | PN ---
Unit #: [id number] #: [id number] Patient: DOTTY REDDY [id number] [facility] [address] [place] [address] [id number] I MR#: [id number] NAME: DOTTY REDDY ROOM: P251 Age: 66 Sex: F Admission Date: 05/06/2016 : 1950 Attending Physician: Jj Krishnan M.D. Admitting Physician: Sigifredo Rodney PROGRESS NOTES DATE 05/13/2016 DISCUSSION Ms. Reddy is a 66-year-old white female who was seen today and chart was reviewed and case was discussed with the staff. She remains bizarre, anxious, disorganized and rather seclusive to herself. Meanwhile, she has been cooperative with treatment recommendations and has been taking medications and tolerating them fairly well with no reported side effects. MENTAL STATUS EXAMINATION An elderly white female who was casually dressed with a fair personal hygiene appears to be in no acute distress or discomfort. She was awake and alert with impaired attention and concentration. Her mood was anxious with congruent affect. She denies any suicidal or homicidal ideations. Also, denies any auditory or visual hallucinations. Her thought process was disorganized with some looseness of associations and paranoid ideation. Her insight and judgement remains significantly impaired. TREATMENT PLAN 1. We will continue her on her current medications and treatment protocol. We will monitor her response to the medications and make further adjustments as needed. 2. We will continue to follow up. Dictated by... Sigifredo Rodney/emeka TD: 05/14/2016 01:42 JOB #: [id number] Unit #: [id number] #: [id number] Patient: DOTTY REDDY PROGRESS NOTES Page 1 of 1 X Jj Krishnan MD PROGRESS NOTE
--- NOTE | ~2016-05-06 | PN ---
Unit #: [id number] #: [id number] Patient: DOTTY REDDY [id number] [facility] [address] [place] [address] [id number] I MR#: [id number] NAME: DOTTY REDDY ROOM: P251 Age: 66 Sex: F Admission Date: 05/06/2016 : 1950 Attending Physician: Jj Krishnan M.D. Admitting Physician: Sigifredo Rodney PROGRESS NOTES DATE May 23, 2016 DISCUSSION Ms. Reddy is a 66-year-old white female, who was seen today and chart was reviewed and the case was discussed with the staff. She has been anxious, withdrawn, and she has not shown any agitation or irritability and has been cooperative with the treatment recommendations. She has been taking the medications and tolerating them fairly well with no reported side effects. MENTAL STATUS EXAMINATION An elderly white female, who was casually dressed with fair personal hygiene and appears to be in no acute distress or discomfort. She was awake and alert with impaired attention and concentration. Her mood was anxious with a congruent affect. The patient denies any suicidal or homicidal ideations. Her insight and judgment remain slightly impaired. TREATMENT PLAN We will continue her on her current treatment protocol, and will monitor her response, and make further adjustments as needed. Dictated by... Sigifredo Rodney/karen TD: 05/26/2016 11:29 JOB #: [id number] Unit #: [id number] #: [id number] Patient: DOTTY REDDY PROGRESS NOTES Page 1 of 1 X Jj Krishnan MD PROGRESS NOTE
--- NOTE | ~2016-05-06 | PN ---
Unit #: [id number] #: [id number] Patient: DOTTY REDDY [id number] [facility] [address] [place] [address] [id number] MR#: [id number] NAME: DOTTY REDDY ROOM: P251 Age: 66 Sex: F Admission Date: 05/06/2016 : 1950 Attending Physician: Jj Krishnan M.D. Admitting Physician: Sigifredo Rodney PROGRESS NOTES DATE 05/21/2016 DISCUSSION Ms. Reddy is a 66-year-old white female with mood disorder and psychosis who was seen today and chart was reviewed and case was discussed with the staff who reported the patient remains bizarre, disorganized and rather seclusive to herself. Meanwhile, she has been taking the medications and tolerating them fairly well with no reported side effects. MENTAL STATUS EXAMINATION An elderly white female who was casually dressed with fair personal hygiene, appears to be in no acute distress or discomfort. She was awake and alert on interaction with intact orientation. Her mood was anxious with congruent affect. She denies any suicidal or homicidal ideations. Her thought processes were disorganized with some looseness of associations and paranoid ideations. Her insight and judgement remains significantly impaired. TREATMENT PLAN 1. We will continue her on her current medications and treatment protocol. We will monitor her response to the medication and make further adjustments as needed. 2. We will continue to follow up. Dictated by... Sigifredo Rodney/emeka TD: 05/25/2016 03:51 JOB #: [id number] Unit #: [id number] #: [id number] Patient: DOTTY REDDY PROGRESS NOTES Page 1 of 1 X Jj Krishnan MD X PROGRESS NOTE
--- NOTE | ~2016-05-06 | PN ---
Unit #: [id number] #: [id number] Patient: DOTTY REDDY [id number] [facility] [address] [place] [address] [id number] MR#: [id number] NAME: DOTTY REDDY ROOM: P251 Age: 66 Sex: F Admission Date: 05/06/2016 : 1950 Attending Physician: Jj Krishnan M.D. Admitting Physician: Sigifredo Rodney PROGRESS NOTES DATE 05/22/2016 DISCUSSION Ms. 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 MENTAL STATUS EXAMINATION An elderly white female who was casually dressed with fair personal hygiene, appears to be in no acute distress or discomfort. She was awake and alert with impaired attention and concentration. Her mood was anxious with congruent affect. Her speech was slow and restricted in content. Her thought processes were disorganized with some looseness of associations and flight of ideas. Her insight and judgement remains significantly impaired. TREATMENT PLAN 1. We will continue her on her current medications and treatment protocol. We will monitor her response to the medication and make further adjustments as needed. 2. We will continue to follow up. Dictated by... Sigifredo Rodney/emeka TD: 05/26/2016 02:01 JOB #: [id number] Unit #: [id number] #: [id number] Patient: DOTTY REDDY PROGRESS NOTES Page 1 of 1 X Jj Krishnan MD PROGRESS NOTE
[2016-05-10 14:10] LABS: URINE APPEARANCE CLEAR; URINE BILIRUBIN NEG (NEG); URINE BLOOD NEG (NEG); URINE COLOR YELLOW; URINE GLUCOSE NEG (NEG); URINE KETONE NEG (NEG); URINE LEUKOCYTE ESTERASE NEG (NEG); URINE NITRATE NEG (NEG); URINE PROTEIN NEG (NEG); URINE SPECIFIC GRAVITY 1.008 (1.003-1.035); URINE UROBILINOGEN 0.2 MG/DL (NEG)
[2016-05-10 14:43] LABS: AMPHETAMINE NEG (NEG); BARBITURATES NEG (NEG); BENZODIAZEPINES POS (NEG); COCAINE NEG (NEG); MARIJUANA NEG (NEG); OPIATES NEG (NEG); TRICYCLIC ANTIDEPRESSANTS NEG (NEG); U METHADONE NEG (NEG)
[2016-05-24 11:22] LABS: URINE SOURCE CLEAN CATCH
[2016-05-24 11:44] LABS: URINE APPEARANCE CLEAR; URINE BILIRUBIN NEG (NEG); URINE BLOOD NEG (NEG); URINE COLOR YELLOW; URINE GLUCOSE NEG (NEG); URINE KETONE NEG (NEG); URINE LEUKOCYTE ESTERASE TRACE (NEG); URINE NITRATE NEG (NEG); URINE PH 6.5 (5-8); URINE PROTEIN NEG (NEG); URINE SPECIFIC GRAVITY 1.008 (1.003-1.035); URINE UROBILINOGEN 0.2 MG/DL (NEG)
[2016-05-24 11:49] LABS: URBCS1 AUWI 0-2 /[HPF] (0-2); URINE BACTERIA AUWI NEG (NEGATIVE); URINE SQUAMOUS EPITHELIAL CELL NONE SEEN /[HPF]; UWBCS1 AUWI 0-2 (0-5)
[2016-05-24 11:53] LABS: CULTURE INDICATED? NO
== END 2016-06-01 13:15 | DRG 885 ==
LOC: POF 13:57 → P2L 15:23 → POF 22:33 → P2L 22:34
PROVIDERS: Psychiatry & Neurology Psychiatry
DX: F31.2 Bipolar disorder, current episode manic severe with psychotic features (principal); I10 Essential (primary) hypertension; N39.0 Urinary tract infection, site not specified; Z59.0 Homelessness; F17.210 Nicotine dependence, cigarettes, uncomplicated
CPT/HCPCS: 80307; 81003; J2060; J3486